=== PATIENT | male | born 1950 | race Two or more races ===

== ENCOUNTER → 2017-12-31 15:56 | Outpatient (CLI) | payer BC | END | disposition home or self-care (01) | LOC: D.CT 09:00 | DX: I73.9 Peripheral vascular disease, unspecified (principal) ==

== ENCOUNTER → 2018-01-15 12:51 | Outpatient (CLI) | payer BC ==
[2018-01-15 15:18] LABS: BASOPHILS 0.3 % (0-2); HEMATOCRIT 43.1 % (42.0-54.0); HEMOGLOBIN 15.1 g/dL (13.5-17.5); IMMATURE GRANULOCYTES 0.2 % (0-5); LYMPHOCYTES 28.8 % (15-50); MCH 30.6 pg (26.0-34.0); MCV 87.4 fL (80.0-100.0); MEAN PLATELET VOLUME 13.2 fL (7.4-10.4); MONOCYTES 9.2 % (2-11); NEUTROPHILS 55.5 % (40-80); PLATELET COUNT 166 10x3/uL (130-400); RBC 4.93 10x6/uL (4.20-6.10); RDW 13.2 % (11.5-14.5); WBC 5.9 10x3/uL (4.8-10.8)
[2018-01-15 15:33] LABS: URIC ACID 9.1 mg/dL (2.6-7.2)
[2018-01-15 16:23] LABS: ERYTHROCYTE SEDIMENTATION RATE 5 mm/hr (0-20)
[2018-01-16 14:23] LABS: ANA REFLEX - DIRECT Negative (Negative)
== END | disposition home or self-care (01) ==
LOC: D.LABREF 12:51
PROVIDERS: Orthopaedic Surgery
DX: M06.4 Inflammatory polyarthropathy (principal)